=== PATIENT | female | born 2005 | race Caucasian/White ===

== ENCOUNTER 2025-07-07 13:53 | Emergency (ER) | payer OTHER, SELFPAY ==
[2025-07-07 13:57] VITALS: BP 121/78
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
== END 2025-07-07 18:02 | disposition left against medical advice (07) ==
LOC: EMR 13:53
PROVIDERS: EMERGENCY PHYSICIAN Emergency Medicine; FAMILY PHYSICIAN Pediatrics; PRIMARYCARE PHYSICIAN Internal Medicine
DX: S01.112A Laceration without foreign body of left eyelid and periocular area, initial encounter (principal); S05.12XA Contusion of eyeball and orbital tissues, left eye, initial encounter; Y04.0XXA Assault by unarmed brawl or fight, initial encounter; Z53.29 Procedure and treatment not carried out because of patient's decision for other reasons
CPT/HCPCS: 99284; 70450; 70480

== ENCOUNTER 2025-09-25 19:14 | Emergency (ER) | payer OTHER, SELFPAY ==
[2025-09-25 19:15] VITALS: BP 117/78
[2025-09-25 19:34] VITALS: BMI 21.4
[2025-09-25 19:53] VITALS: BP 107/65
--- NOTE | 2025-09-25 20:06 | ED.GENMED ---
History of Present Illness
General
Chief Complaint: Crisis Evaluation
Source: patient
Exam Limitations: none
Time Seen by Provider: 09/25/25 19:22
Nursing documentation reviewed up to this point in time: agreed with
History of Present Illness
History of Present Illness:
Patient to the emergency department with report of wanting to hurt self. She admits to a history of alcohol abuse. Last drink was approximately 2 hours prior to arrival. She is currently homeless and is living in her car. She spoke with her
grandparents this afternoon and told them that she does not want to live like this anymore. She admits to wanting to hurt self at that time. She did not have a plan. Currently denies SI and HI, but would like inpatient rehab for her alcohol
disorder. She denies any history of prior inpatient treatment for drug or alcohol or mental health issues. States her mother was killed by her stepfather in 2020 and since then she has been struggling. States her grandfather dropped her at the
emergency room tonight.
Past History
Past History
ED Past Medical History: None
ED Past Surgical History: None
Social History
Tobacco: Smoker (1ppd)
Alcohol: Daily
Drug: Marijuana (daily 'all day')
Personal: Single
Living: homeless
Review of Systems
Review of Systems
Allergies reviewed?: Yes
All Other Systems: ROS reviewed and negative except as documented in HPI and ROS
Constitutional: Reports no symptoms
EENT: Reports no symptoms
Respiratory: Reports no symptoms
Cardiac: Reports no symptoms
ABD/GI: Reports no symptoms
: Reports no symptoms
Musculoskeletal: Reports no symptoms
Skin: Reports no symptoms
Neurological: Reports no symptoms
Psychiatric: Reports suicidal
Phy Exam
General Physical Exam
General Presentation: well appearing and no apparent distress
General age: appears stated age
General Skin: warm and dry
General Habitus: normal
General Mental: alert
Eye Exam
Eye Exam: PERRL, EOMI and conjunctiva normal
Cardiovascular Exam
Cardiovascular Exam: regular rate/rhythm and no edema
Neurological Exam
Neurological Exam: alert, oriented x3, CN II-XII intact, no motor deficits, no sensory deficits and speech normal
Musculoskeletal Exam
Musculoskeletal Exam: full ROM and neuro vasc intact
Skin Exam
Skin Exam: normal color, warm/dry and no rash
Psychiatric Exam
Psychiatric Exam: depressed
Course
Orders/Labs/Results
Orders:
Orders
09/25/25 19:18
Crisis Consult Urgent
Reason for Consult: SI
09/25/25 22:44
Alcohol Urgent
Vital Signs
Initial and Last Documented VS:
Initial Vital Signs
Temp Pulse Resp BP Pulse Ox
98 F 107 16 117/78 97
09/25/25 19:15 09/25/25 19:15 09/25/25 19:15 09/25/25 19:15 09/25/25 19:15
Last Documented Vital Signs
Temp Pulse Resp BP Pulse Ox
98 F 84 16 107/65 98
09/25/25 19:53 09/25/25 19:53 09/25/25 19:53 09/25/25 19:53 09/25/25 20:07
*Pulse Oximetry
SaO2: 98
Oxygen Mode of Delivery: Room air
Patient hypoxic: no
*Critical Care Note
Total Time (30-74mins, 75-104mins- exclusive of procedures): Not Applicable
Update Note
Update Note:
[facility] and crisis intervention for suicidal thoughts. She admitted to feeling suicidal but had no plan. She was interviewed by crisis and B [facility]. Patient now
stating that she is declining any inpatient care. She states she is not suicidal, has no thoughts of hurting self or others. Alcohol level 42. She has been provided with about patient resources. Patient is currently on the phone with her
grandfather, states her grandfather will pick her up from the emergency department tonight.
ED Attending Note
-
Portions of this chart may have been created with voice recognition software.� Occasional wrong word or��sound alike� substitutions may have occurred due to the inherent limitations of voice recognition software.
Discharge Plan
Departure
Patient Disposition: Home (Routine Discharge)
Date of Disposition: 09/26/25
Time of Disposition: 00:14
Patient with high blood pressure during this ER visit?: No
Condition: Good
Covid-19: Not Applicable
Discharge Problem:
Alcohol abuse
Instructions: Depression, Adult (DC), Drug and Alcohol Abuse Information
Referrals:
Nicole Solitario MD [Family Provider, Internal Medicine]
Activity Restrictions/Additional Instructions:
As we discussed, crisis is available 20/06. Please return to the emergency department at any time to speak with someone in crisis if needed.
Interventions
Interventions:
*Risk Screen - Suicide Last Done: 09/25/25 19:17
*General Assessment Last Done: 09/25/25 19:36
*Neglect/Abuse Screening Last Done: 09/25/25 19:17
*ED COVID-19 Vaccine History Last Done: 09/25/25 19:36
*ED Influenza Vaccine History Last Done: 09/25/25 19:36
ED-Psychological Assessment Last Done: 09/25/25 19:39
Discharge Date and Time
Print Language: INDONESIAN
== END 2025-09-26 00:31 | disposition home or self-care (01) ==
LOC: EMR 19:14
PROVIDERS: Nurse Practitioner; EMERGENCY PHYSICIAN Emergency Medicine; FAMILY PHYSICIAN Internal Medicine
DX: F10.10 Alcohol abuse, uncomplicated (principal); Y90.2 Blood alcohol level of 40-59 mg/100 ml; F17.200 Nicotine dependence, unspecified, uncomplicated; Z59.02 Unsheltered homelessness
CPT/HCPCS: 99283; 82077